=== PATIENT | male | born 1975 | race Hispanic/Latino ===

== ENCOUNTER 2019-02-23 17:43 | Emergency (ER) | payer SELFPAY ==
[~2019-02-23] VITALS: Ht 165.1 cm; Wt 69.0 kg
[2019-02-23 18:42] VITALS: BP 108/72
== END 2019-02-23 18:45 | disposition home or self-care (01) | DRG 607 ==
LOC: ED 17:43
DX: S50.861A Insect bite (nonvenomous) of right forearm, initial encounter (principal); W57.XXXA Bitten or stung by nonvenomous insect and other nonvenomous arthropods, initial encounter